=== PATIENT | male | born 1955 | race Caucasian/White ===

== ENCOUNTER 2020-11-26 16:09 | Inpatient (IN) ==
[2020-11-26 16:20] VITALS: BMI 31.4
[2020-11-26 16:31] LABS: ABG BASE EXCESS 8.9 mmol/L (-2.0-2.0)
[2020-11-26] MEDS ORDERED: CATAPRES TAB 0.2 MG PO ONE (16:31)
[2020-11-26 16:33] LABS: ABG ALLEN TEST POS; ABG HCO3 31.2 mmol/L (22-26)
--- NOTE | 2020-11-26 16:33 | DR.SOBA ---
HPI Time Seen Time Seen by Provider: 11/26/20 16:18 Primary Care Physician Primary Care Physician: briana nation HPI Comment HPI Comment: PATIENT IS 65YR OLD MALE I8N ER WITH INCREASING SOB, CHEST PAIN AND COUGH AND CONGESTION TIMES 4 DAYS. FEVER ON AND OFF. GETTING WORSE. Complaints Chief Complaint Doctors Comments: COUGH, CHEST CONGESTION AND INCREASIONG SOB TIMES 4 DAYS. Chief Complaint:: chest congestion for last 3-4 days. feeling increased shortness of breath. Self Treatment fo Chief Complaint: taking antibiotic cefdinir 300mg since yesterday COVID-19 Coronavirus risk:travel/contact w/high risk person: Yes Has patient experienced Coronavirus symptoms: Yes Coronavirus symptoms experienced: Coughing and Shortness of Breath Reviewed Nurses Notes Reviewed: Yes Source History Provided: Patient Mode of Arrival Mode of Arrival: Wheelchair Timing Onset of Chief Complaint: 11/22/20 Context Onset:: At Rest PE Risk Factors:: None History of:: COPD Currently on:: Neither Prehospital Care:: None Modifying Factors Worsens:: Exertion and Lying Flat Improves:: Rest and Sitting Up Associated Signs and Symptoms Associated Signs and Symptoms: Cough, Nasal Congestion and Calf Pain If Chest Pain Quality: Sharp Location: Substernal If Cough Cough: Productive and Yellow PMH PMH Past Medical History: Yes Past Medical History: COPD, Coronary Artery Disease, Dyslipidemia and Hypertension Past Medical History Comment: atrial fib Past Surgical History: Yes Surgical History: Angioplasty/Stents and Ortho Surgery Family History History of Family Medical Conditions: Yes Family Medical History: Cancer, [place], Coronary Artery Disease and Hypertension Social History Alcohol Use: None Do you use any recreational Drugs:: No Lives With: Family Lives Where: Home Travel Risk Coronavirus risk:travel/contact w/high risk person: Yes Coronavirus symptoms experienced: Shortness of Breath Infectious screening In the last 2 months have you had wt loss of >10#?: NO Have you had fever, night sweats or hemotysis?: No Have you traveled outside the country in the last 6 months?: No Isolation: Droplet ROS Review of Systems Constitutional: See HPI, Fever, Weakness and Fatigue Eyes: No Symptoms Reported and See HPI ENTM: No Symptoms Reported, See HPI, Nose Discharge and Nose Congestion Respiratoy: No Symptoms Reported, See HPI, Productive Cough, Short of Breath and Wheezing Cardiovascular: No Symptoms Reported, See HPI and Chest Pain Gastrointestinal/Abdominal: No Symptoms Reported and See HPI; negative Abdominal Pain, Diarrhea and Vomiting Genitourinary: No Symptoms Reported and See HPI; negative Dysuria and Hematuria Neurological: See HPI, Headache, Weakness and Dizziness Musculoskeletal: See HPI, Back Pain and Muscle Pain Integumentary: See HPI and Dryness; negative Change in Color, Rash and Juandice Hematologic/Lymphatic: No Symptoms Reported, See HPI and Easy Bruising; negative Swollen Glands Endocrine: No Symptoms Reported and See HPI; negative Increased Thirst and Increased Urine Psychiatric: No Symptoms Reported and See HPI All Other Systems: Reviewed and Negative PE Vital Signs Vitals: Temperature 97.9 F Pulse Rate [Right Radial] 69 Pulse Rate 86 Respiratory Rate 18 Blood Pressure [Left Arm] 176/95 Blood Pressure 206/95 O2 Sat by Pulse Oximetry 96 General Limitations: No Limitations General Appearance: Alert and In No Apparent Distress Head Head Exam: Normal Inspection and Atraumatic Eyes Eye exam: Normal Appearance and PERRL; negative Scleral Icterus and Conjunctival Injection ENT ENT Exam: Normal Exam, Normal Oropharynx, Normal External Ear Exam and TM's Normal Bilaterally Neck Neck Exam: Normal Inspection and Trachea Midline; negative Tenderness and Lymphadenopathy Chest Chest Inspection: Normal Inspection and Symmetric Chest Wall Rise; negative Tenderness Respiratory Respiratory Exam: Normal Lung Sounds Bilat and Accessory Muscle Use; negative Respiratory Distress Respiratory Exam: Bilateral: Rhonchi and Lower: Rhonchi Cardiovascular Cardiovascular Exam: Regular Rate, Normal Rhythm and Normal Heart Sounds; negative Systolic Murmur and Diastolic Murmur Abdominal Exam Abdominal Exam: Normal Inspection, Normal Bowel Sounds and Soft; negative Tenderness Extremities Extremities Exam: Normal Inspection and Normal Capillary Refill; negative Tenderness and Calf Tenderness Back Back Exam: Normal Inspection; negative (R) CVA Tenderness and (L) CVA Tenderness Neurologic Neurological Exam: Alert, Oriented X3 and CN II-XII Intact; negative Motor Sensory Deficit Psychiatric Psychiatric Exam: Normal Affect and Normal Mood Skin Skin Exam: Warm, Dry, Intact and Normal Color MDM Differential Diagnosis Differential Diagnosis: Bronchitis, CHF, COPD, Hypertensive Emergency, Hyponatremia, Mycardial Infarction, Pneumonia, Pneumothorax and Respiratory Ins ufficiency COURSE Treatment Treatment: SEE ORDERS. Education/Counseling Education/Counseling: Patient Educated On: Diagnosis ROR Labs Reviewed Laboratory Results Reviewed?: Yes Result Diagrams: 12/03/20 04:05 12/03/20 04:05 Laboratory: 11/26/20 17:03 Blood Blood Culture - Final 11/26/20 16:55 Blood Blood Culture - Final WBC 7.2 X10^3/uL (3.6-10.0) 11/26/20 16:55 RBC 3.71 X10^6/uL (4.7-6.0) L 11/26/20 16:55 Hgb 11.2 g/dL (13.5-18.0) L 11/26/20 16:55 Hct 33.7 % (42.0-54.0) L 11/26/20 16:55 MCV 90.9 fL (80.0-100.0) 11/26/20 16:55 MCH 30.2 pg (27.0-34.0) 11/26/20 16:55 MCHC 33.2 g/dL (33.0-35.0) 11/26/20 16:55 RDW 15.8 % (11.6-16.5) 11/26/20 16:55 Plt Count 229 X10^3/uL (150.0-450.0) 11/26/20 16:55 MPV 8.2 fL (7.4-11.0) 11/26/20 16:55 Neut % (Auto) 86.9 % (42.0-75.0) H 11/26/20 16:55 Lymph % (Auto) 8.0 % (21.0-51.0) L 11/26/20 16:55 [place] % (Auto) 4.5 % (0.0-13.0) 11/26/20 16:55 Eos % (Auto) 0.2 % (0.9-2.9) L 11/26/20 16:55 Baso % (Auto) 0.4 % (0.2-1.0) 11/26/20 16:55 Neut # (Auto) 6.3 x10^3/uL (2.2-4.8) H 11/26/20 16:55 Lymph # (Auto) 0.6 X10^3/uL (1.3-2.9) L 11/26/20 16:55 [place] # (Auto) 0.3 x10^3/uL (0.3-0.8) 11/26/20 16:55 Eos # (Auto) 0.0 x10^3/uL (0.0-0.2) 11/26/20 16:55 Baso # (Auto) 0.0 X10^3/uL (0.0-0.1) 11/26/20 16:55 Absolute Nucleated RBC 0.2 /100WBC 11/26/20 16:55 D-Dimer 0.34 ug/ml (0.0-0.57) 11/26/20 16:55 Sample Site Right radial 11/26/20 16:24 ABG pH 7.570 (7.35-7.45) H* 11/26/20 16:24 ABG pCO2 34.0 mmHg (35.0-45.0) L 11/26/20 16:24 ABG pO2 61.0 mmHg (80.0-100.0) L 11/26/20 16:24 ABG HCO3 31.2 mmol/L (22-26) H* 11/26/20 16:24 ABG O2 Saturation 94.0 % (90-100) 11/26/20 16:24 ABG Base Excess 8.9 mmol/L (-2.0-2.0) H 11/26/20 16:24 Laron Test Pos 11/26/20 16:24 A-a Gradient 46.0 mmHg 11/26/20 16:24 FiO2 21.0 11/26/20 16:24 Blood Gas Comments Ev well eb 11/26/20 16:24 Sodium 140 mmol/L (136-145) 11/26/20 16:55 Corrected Sodium 141 mmol/L (136-145) 11/26/20 16:55 Potassium 3.3 mmol/L (3.5-5.1) L 11/26/20 16:55 Chloride 100 mmol/L (98-107) 11/26/20 16:55 Carbon Dioxide 31.7 mmol/L (21-32) 11/26/20 16:55 BUN 16 mg/dL (7-18) 11/26/20 16:55 Creatinine 1.34 mg/dL (0.70-1.30) H 11/26/20 16:55 Est GFR (MDRD) Af Amer > 60 (>60) 11/26/20 16:55 Est GFR (MDRD) Non-Af 57 (>60) L 11/26/20 16:55 Glucose 122 mg/dL (65-99) H 11/26/20 16:55 Lactic Acid 1.7 mmol/L (0.4-2.0) 11/26/20 16:55 Calcium 8.7 mg/dL (8.5-10.1) 11/26/20 16:55 Corrected Calcium 9.4 mg/dL (8.5-10.1) 11/26/20 16:55 Total Bilirubin 0.80 mg/dL (0.2-1.0) 11/26/20 16:55 AST 29 Units/L (15-37) 11/26/20 16:55 ALT 19 Units/L (12-78) 11/26/20 16:55 Alkaline Phosphatase 62 Units/L (46-116) 11/26/20 16:55 Creatine Kinase 73 Units/L (39-308) 11/26/20 16:55 CK-MB (CK-2) 1.3 ng/mL (0-4.0) 11/26/20 16:55 CK/CKMB % Calc 1.8 % (<4) 11/26/20 16:55 Troponin I 0.07 ng/mL (0-1.5) 11/26/20 16:55 Total Protein 7.0 g/dL (6.4-8.2) 11/26/20 16:55 Albumin 3.1 g/dL (3.4-5.0) L 11/26/20 16:55 Globulin 3.9 g/dL (2.5-4.5) 11/26/20 16:55 Albumin/Globulin Ratio 0.8 Ratio (1.1-2.1) L 11/26/20 16:55 SARS CoV-2 RNA Rapid COLIN Positive (NEGATIVE) A 11/26/20 17:38 XRAY XRAY Interpreted by: Radiologist (REPORT NOTED AND DISCUSSED WITH PATIENT.) and Self EKG Rate: 94 [place]: Normal Rhythm: Afib and PVCs ST: Ischemia, Infarct and Nonsp Opioid Opioid Risk Tool Age ([place] if 16-45): No History of Preadolescent Sexual Abuse: No Total: 0 Total Score Risk Category: Low Risk Copyright: [facility] predicting aberrant behaviors Diagnosis Discharge Problem: Hypoxia, COVID-19 virus infection Pneumonia Qualifiers: Pneumonia type: due to unspecified organism Laterality: bilateral Lung location: lower lobe of lung Qualified Code(s): J18.9 - Pneumonia, unspecified organism Instructions Instructions: Incentive Spirometer Home Oxygen Use, Adult Hand Washing, Gxsf-wf-Prfd Droplet Precautions, Ajdh-lx-Uymd Contact Precautions, Fsmz-bj-Umza Hypertension, Gycm-at-Zjwa Acute Respiratory Failure, Adult Forms: EUA Consent Precautions for COVID19 Social Distancing
--- NOTE | 2020-11-26 16:54 | RAD ---
HISTORY:Chest congestion, shortness of breathStudy: Single view chestComparison:NoneFindings:Single view submitted. There are multifocal bilateral lung infiltrates present throughout the upper and lower lobes compatible with pneumonia.There is rhbc-yb-bqndenus cardiomegaly.The soft tissues are intact .IMPRESSION:1. Multifocal bilateral lung infiltrates compatible with pneumonia.2. Oiov-ae-mhbcbjuu cardiomegaly.Electronically signed by: FENG ENRIQUE (Nov 26, 2020 16:53:00)
[2020-11-26 17:15] LABS: BASOPHILS % (AUTO) 0.4 % (0.2-1.0); EOSINOPHILS % (AUTO) 0.2 % (0.9-2.9); HEMATOCRIT 33.7 % (42.0-54.0); HEMOGLOBIN 11.2 g/dL (13.5-18.0); LYMPHOCYTES # (AUTO) 0.6 X10^3/uL (1.3-2.9); MEAN CORPUSCULAR HEMOGLOBIN 30.2 pg (27.0-34.0); MEAN CORPUSCULAR HGB CONC 33.2 g/dL (33.0-35.0); MEAN CORPUSCULAR VOLUME 90.9 fL (80.0-100.0); MEAN PLATELET VOLUME 8.2 fL (7.4-11.0); MONOCYTES # (AUTO) 0.3 x10^3/uL (0.3-0.8); MONOCYTES % (AUTO) 4.5 % (0.0-13.0); NEUTROPHILS # (AUTO) 6.3 x10^3/uL (2.2-4.8); NEUTROPHILS % (AUTO) 86.9 % (42.0-75.0); PLATELET COUNT 229 X10^3/uL (150.0-450.0); RED BLOOD COUNT 3.71 X10^6/uL (4.7-6.0); RED CELL DISTRIBUTION WIDTH 15.8 % (11.6-16.5); WHITE BLOOD COUNT 7.2 X10^3/uL (3.6-10.0)
[2020-11-26 17:32] LABS: BLOOD UREA NITROGEN 16 mg/dL (7-18); CALCIUM 8.7 mg/dL (8.5-10.1); CARBON DIOXIDE 31.7 mmol/L (21-32); CHLORIDE 100 mmol/L (98-107); COR NA(FOR HYPERGLY) 141 mmol/L (136-145); CREATININE 1.34 mg/dL (0.70-1.30); SODIUM 140 mmol/L (136-145); TROPONIN I 0.07 ng/mL (0-1.5); eGFR NON BLACK RACES 57 (>60)
[2020-11-26 17:36] LABS: ALANINE AMINOTRANSFERASE 19 Units/L (12-78); ALBUMIN 3.1 g/dL (3.4-5.0); ALKALINE PHOSPHATASE 62 Units/L (46-116); ASPARTATE AMINO TRANSFERASE 29 Units/L (15-37); CKMB % 1.8 % (<4); COR CA(FOR HYPOALB) 9.4 mg/dL (8.5-10.1); CREATINE KINASE 73 Units/L (39-308); CREATINE KINASE MB 1.3 ng/mL (0-4.0)
[2020-11-26] MEDS ORDERED: CATAPRES TAB 0.2 MG ONE (17:37)
[2020-11-26] MEDS ORDERED: ZOFRAN TAB 4 MG ONE (17:39)
[2020-11-26] MEDS ORDERED: ZOFRAN TAB 4 MG PO ONE (17:41)
[2020-11-26 18:32] LABS: LACTIC ACID 1.7 mmol/L (0.4-2.0)
[2020-11-26] MEDS ORDERED: ZOFRAN INJ 4 MG VIAL IVP ONE (19:46)
[2020-11-26] MEDS ORDERED: TORADOL 30 MG VIAL IVP ONE (19:46)
[2020-11-26] MEDS ORDERED: TORADOL 30 MG VIAL ONE (19:50)
[2020-11-26] MEDS ORDERED: ZOFRAN INJ 4 MG VIAL ONE (19:50)
[2020-11-26] MEDS ORDERED: ROCEPHIN 1 GRAM IV PREMIX 1 G/50 ML IV.SOLN. IV ONE ×2 (21:09→21:11)
[2020-11-26] MEDS ORDERED: NS 250 ML IV 250 ML IV ONE ×2 (21:11→22:55)
[2020-11-26] MEDS ORDERED: ASPIRIN EC 81 MG PO ONE (22:00)
[2020-11-26] MEDS ORDERED: PROVENTIL NEB TX 0.083% 2.5MG/ 3ML ONE (22:29)
[2020-11-26] MEDS: PROVENTIL NEB TX 0.083% 2.5MG/ 3ML NEB SCH (22:30)
[2020-11-26] MEDS ORDERED: TUSSIONEX PENNKINETIC SUSP PO PRN (22:36)
[2020-11-26] MEDS ORDERED: PATIENT'S HOME MEDICATION (Aspirin 81 mg Tablet) PO SCH (22:36)
[2020-11-26] MEDS ORDERED: REMDESIVIR IV ONE (22:55)
[2020-11-26] MEDS: REMDESIVIR 200 MG in NS 250 ML IV 250 ML IV SCH (23:08)
[2020-11-26] MEDS ORDERED: ZOSYN VIAL 3.375 GRAMS IV ONE (23:11)
[2020-11-26] MEDS ORDERED: NS 100 ML IV 100 ML IV ONE (23:12)
[2020-11-27] MEDS: ZOSYN VIAL 3.375 GRAMS 3.375 G in NS 100 ML IV + SPIKE MINIBAG* 100 ML IV SCH ×4 (00:41→22:00)
[2020-11-27] MEDS: ZOFRAN INJ 4 MG VIAL IVP PRN ×3 (01:57→18:38)
[2020-11-27] MEDS ORDERED: ZOFRAN INJ 4 MG VIAL ONE ×2 (01:57→10:21)
[2020-11-27] MEDS ORDERED: ASCORBIC ACID INJ MULTI-DOSE VIAL IV ONE ×2 (02:51→09:09)
[2020-11-27] MEDS ORDERED: NS 100 ML IV 100 ML IV ONE ×4 (02:51→09:08)
[2020-11-27] MEDS: ASCORBIC ACID INJ MULTI-DOSE VIAL 1,500 MG in NS 100 ML IV 100 ML IV SCH ×4 (03:43→21:50)
[2020-11-27] MEDS ORDERED: TYLENOL 325 MG TAB PO ONE ×3 (03:49→10:46)
[2020-11-27] MEDS: TYLENOL 325 MG TAB PO PRN ×3 (03:52→14:21)
[2020-11-27] MEDS ORDERED: ZOSYN VIAL 3.375 GRAMS IV ONE ×2 (04:51→13:22)
[2020-11-27 06:12] LABS: BASOPHILS % (AUTO) 0.7 % (0.2-1.0); EOSINOPHILS % (AUTO) 0.1 % (0.9-2.9); HEMATOCRIT 31.5 % (42.0-54.0); HEMOGLOBIN 10.3 g/dL (13.5-18.0); LYMPHOCYTES # (AUTO) 0.7 X10^3/uL (1.3-2.9); MEAN CORPUSCULAR HEMOGLOBIN 29.8 pg (27.0-34.0); MEAN CORPUSCULAR HGB CONC 32.9 g/dL (33.0-35.0); MEAN CORPUSCULAR VOLUME 90.6 fL (80.0-100.0); MEAN PLATELET VOLUME 8.6 fL (7.4-11.0); MONOCYTES # (AUTO) 0.3 x10^3/uL (0.3-0.8); MONOCYTES % (AUTO) 5.6 % (0.0-13.0); NEUTROPHILS # (AUTO) 4.8 x10^3/uL (2.2-4.8); NEUTROPHILS % (AUTO) 81.6 % (42.0-75.0); PLATELET COUNT 198 X10^3/uL (150.0-450.0); RED BLOOD COUNT 3.47 X10^6/uL (4.7-6.0); RED CELL DISTRIBUTION WIDTH 15.6 % (11.6-16.5); WHITE BLOOD COUNT 5.9 X10^3/uL (3.6-10.0)
[2020-11-27 06:17] LABS: ALANINE AMINOTRANSFERASE 15 Units/L (12-78); ALBUMIN 2.6 g/dL (3.4-5.0); ALKALINE PHOSPHATASE 52 Units/L (46-116); ASPARTATE AMINO TRANSFERASE 30 Units/L (15-37); BLOOD UREA NITROGEN 20 mg/dL (7-18); CARBON DIOXIDE 28.4 mmol/L (21-32); CHLORIDE 101 mmol/L (98-107); COR CA(FOR HYPOALB) 9.1 mg/dL (8.5-10.1); CREATININE 1.26 mg/dL (0.70-1.30); SODIUM 139 mmol/L (136-145); TOTAL PROTEIN 6.1 g/dL (6.4-8.2); eGFR NON BLACK RACES > 60 (>60)
[2020-11-27] MEDS ORDERED: PROVENTIL NEB TX 0.083% 2.5MG/ 3ML ONE (06:24)
[2020-11-27 06:51] LABS: ABG BASE EXCESS 8.7 mmol/L (-2.0-2.0)
[2020-11-27 06:52] LABS: ABG ALLEN TEST POS; ABG HCO3 31.5 mmol/L (22-26)
[2020-11-27] MEDS: PROVENTIL NEB TX 0.083% 2.5MG/ 3ML NEB SCH ×3 (06:52→18:28)
[2020-11-27] MEDS ORDERED: VITAMIN A PO SCH (09:00)
[2020-11-27] MEDS ORDERED: VITAMIN D (1.25MG) PO SCH (09:00)
[2020-11-27] MEDS ORDERED: PLAVIX ONE (09:07)
[2020-11-27] MEDS ORDERED: LASIX ONE (09:07)
[2020-11-27] MEDS ORDERED: PEPCID TAB 20 MG ONE (09:07)
[2020-11-27] MEDS ORDERED: PROTONIX TAB 40 MG PO ONE (09:07)
[2020-11-27] MEDS ORDERED: ZINC SULFATE ONE (09:08)
[2020-11-27] MEDS ORDERED: ROBITUSSIN DM ONE ×2 (09:08→13:23)
[2020-11-27] MEDS: BENICAR TAB 40 MG PO SCH (09:15)
[2020-11-27] MEDS: LASIX PO SCH (09:16)
[2020-11-27] MEDS: LIPITOR TAB 40 MG PO SCH (09:18)
[2020-11-27] MEDS: PROTONIX TAB 40 MG PO SCH ×2 (09:19→21:50)
[2020-11-27] MEDS: ROBITUSSIN DM PO SCH ×4 (09:20→21:50)
[2020-11-27] MEDS: ZINC SULFATE PO SCH ×2 (09:20→21:50)
[2020-11-27] MEDS: PEPCID TAB 20 MG PO SCH ×2 (09:21→21:50)
[2020-11-27] MEDS: VSL#3 PO SCH (09:25)
[2020-11-27] MEDS: PLAVIX PO SCH (09:30)
[2020-11-27] MEDS: ELIQUIS PO SCH ×2 (10:05→21:50)
[2020-11-27] MEDS ORDERED: NS 100 ML IV + SPIKE MINIBAG* 100 ML IV ONE (13:23)
--- NOTE | 2020-11-27 13:42 | DR.H&P ---
H&P History & Physical for Day of: H&P Date: 11/27/20 Chief Complaint Chief Complaint: Fever, Shortness of breath Chills Allergies Allergies Allergy/AdvReac Type Severity Reaction Status Date / Time acetaminophen Allergy Verified 11/26/20 16:15 [From Lorcet (hydrocodone)] hydrocodone Allergy Verified 11/26/20 16:15 [From Lorcet (hydrocodone)] History of Present Illness History of Present Illness: Pt is a 65 year old male past medical history of Hypertension, COPD, CAD, presenting with shortness of breath, fever, chills, and weakness for the last 3-4 days. He reports he was initially treated with antibiotic cefdinir but did not improve. In the ED, he was found to be hypoxic and required supplemental oxygen. Labs/imaging: Wbc 5.9, Hgb 10.3, Plt 198, Na 139, K 3.4, Cr 1.34>1.26, Glucose 85, CRP 179, Troponin negative x 2, COVID positive on 11/26, INR: 1.34, D-dimer: 0.34, AB.57/34/61/31 on 2L 94%, repeat was done, 7.55/36/55/31 on 3L 91%. CXR:1. Multifocal bilateral lung infiltrates compatible with pneumonia. 2.Nfza-bl-mknvhjic cardiomegaly. HE was started on Remdesivir, Decadron, Bronchodilators, Convalescent plasma ordered, Antibiotics: Zosyn , immune supporting supplements, supplemental O2, I/S, Respiratory therapy consult, Pneumonia protocol. Patient was initially on 2L NC but then declined rapidly and was placed on HHFNC. Continue treatment, restart home meds. Follow up labs and imaging in the AM. Time spent on clinical assessment, reviewing labs and imaging, decision making, and documentation greater than 45 minutes. Past Medical History Past Medical History: COPD, Coronary Artery Disease, Dyslipidemia and Hypertension Past Surgical History Surgical History: Angioplasty/Stents and Ortho Surgery Family History Family Medical History: Diabetes Mellitus, Cancer and Hypertension Social History Does patient currently use any type of tobacco product: No Have you used tobacco products in the last 12 months: No Type of Tobacco Use: None Does any household member use tobacco: No Alcohol Use: None Drug Use: None Medications Home Medications: acetaminophen [From Lorcet (hydrocodone)] Allergy (Verified 11/26/20 16:15) hydrocodone [From Lorcet (hydrocodone)] Allergy (Verified 11/26/20 16:15) CONTINUE taking the following medications apixaban [Eliquis] 5 mg PO BID 11/26/20 [History] ascorbic acid (vitamin C) [Vitamin C] 500 mg PO DAILY 11/26/20 [History] aspirin 81 mg PO ONCE 11/26/20 [History] atorvastatin 80 mg PO DAILY 11/26/20 [History] cefdinir 300 mg PO BID 11/26/20 [History] furosemide 40 mg PO DAILY 11/26/20 [History] olmesartan 20 mg PO DAILY 11/26/20 [History] pantoprazole 40 mg PO BID 11/26/20 [History] prednisone 10 mg PO DAILY 11/26/20 [History] Labs Result Diagrams: 11/27/20 04:10 11/27/20 04:10 Labs: Laboratory WBC 5.9 X10^3/uL (3.6-10.0) 11/27/20 04:10 RBC 3.47 X10^6/uL (4.7-6.0) L 11/27/20 04:10 Hgb 10.3 g/dL (13.5-18.0) L 11/27/20 04:10 Hct 31.5 % (42.0-54.0) L 11/27/20 04:10 MCV 90.6 fL (80.0-100.0) 11/27/20 04:10 MCH 29.8 pg (27.0-34.0) 11/27/20 04:10 MCHC 32.9 g/dL (33.0-35.0) L 11/27/20 04:10 RDW 15.6 % (11.6-16.5) 11/27/20 04:10 Plt Count 198 X10^3/uL (150.0-450.0) 11/27/20 04:10 MPV 8.6 fL (7.4-11.0) 11/27/20 04:10 Neut % (Auto) 81.6 % (42.0-75.0) H 11/27/20 04:10 Lymph % (Auto) 12.0 % (21.0-51.0) L 11/27/20 04:10 [place] % (Auto) 5.6 % (0.0-13.0) 11/27/20 04:10 Eos % (Auto) 0.1 % (0.9-2.9) L 11/27/20 04:10 Baso % (Auto) 0.7 % (0.2-1.0) 11/27/20 04:10 Neut # (Auto) 4.8 x10^3/uL (2.2-4.8) 11/27/20 04:10 Lymph # (Auto) 0.7 X10^3/uL (1.3-2.9) L 11/27/20 04:10 [place] # (Auto) 0.3 x10^3/uL (0.3-0.8) 11/27/20 04:10 Eos # (Auto) 0.0 x10^3/uL (0.0-0.2) 11/27/20 04:10 Baso # (Auto) 0.0 X10^3/uL (0.0-0.1) 11/27/20 04:10 Absolute Nucleated RBC 0.0 /100WBC 11/27/20 04:10 PT 16.2 SECONDS (11.8-14.3) 11/27/20 04:10 INR Target Range - 11/27/20 04:10 INR 1.34 (0.8-1.3) H 11/27/20 04:10 APTT 56.7 SECONDS (22.9-36.5) H 11/27/20 04:10 PTT Comment - 11/27/20 04:10 D-Dimer 0.34 ug/ml (0.0-0.57) 11/26/20 16:55 Sample Site Lrad 11/27/20 06:49 ABG pH 7.550 (7.35-7.45) H 11/27/20 06:49 ABG pCO2 36.0 mmHg (35.0-45.0) 11/27/20 06:49 ABG pO2 55.0 mmHg (80.0-100.0) L 11/27/20 06:49 ABG HCO3 31.5 mmol/L (22-26) H* 11/27/20 06:49 ABG O2 Saturation 92.0 % (90-100) 11/27/20 06:49 ABG Base Excess 8.7 mmol/L (-2.0-2.0) H 11/27/20 06:49 Laron Test Pos 11/27/20 06:49 A-a Gradient 128.0 mmHg 11/27/20 06:49 FiO2 32.0 11/27/20 06:49 Blood Gas Comments Ev abg well-mtf 11/27/20 06:49 Sodium 139 mmol/L (136-145) 11/27/20 04:10 Corrected Sodium TNP 11/27/20 04:10 Potassium 3.4 mmol/L (3.5-5.1) L 11/27/20 04:10 Chloride 101 mmol/L (98-107) 11/27/20 04:10 Carbon Dioxide 28.4 mmol/L (21-32) 11/27/20 04:10 BUN 20 mg/dL (7-18) H 11/27/20 04:10 Creatinine 1.26 mg/dL (0.70-1.30) 11/27/20 04:10 Est GFR (MDRD) Af Amer > 60 (>60) 11/27/20 04:10 Est GFR (MDRD) Non-Af > 60 (>60) 11/27/20 04:10 Glucose 85 mg/dL (65-99) 11/27/20 04:10 Lactic Acid 1.7 mmol/L (0.4-2.0) 11/26/20 16:55 Calcium 8.0 mg/dL (8.5-10.1) L 11/27/20 04:10 Corrected Calcium 9.1 mg/dL (8.5-10.1) 11/27/20 04:10 Total Bilirubin 0.70 mg/dL (0.2-1.0) 11/27/20 04:10 AST 30 Units/L (15-37) 11/27/20 04:10 ALT 15 Units/L (12-78) 11/27/20 04:10 Alkaline Phosphatase 52 Units/L (46-116) 11/27/20 04:10 Creatine Kinase 73 Units/L (39-308) 11/26/20 16:55 CK-MB (CK-2) 1.3 ng/mL (0-4.0) 11/26/20 16:55 CK/CKMB % Calc 1.8 % (<4) 11/26/20 16:55 Troponin I 0.13 ng/mL (0-1.5) 11/26/20 22:46 C-Reactive Protein 179.60 mg/L (0-3.0) H 11/27/20 04:10 Total Protein 6.1 g/dL (6.4-8.2) L 11/27/20 04:10 Albumin 2.6 g/dL (3.4-5.0) L 11/27/20 04:10 Globulin 3.5 g/dL (2.5-4.5) 11/27/20 04:10 Albumin/Globulin Ratio 0.7 Ratio (1.1-2.1) L 11/27/20 04:10 SARS CoV-2 RNA Rapid COLIN Positive (NEGATIVE) A 11/26/20 17:38 Review of Systems Constitutional: Fever, Chills and Weakness Eyes: No Symptoms Reported ENT: No Symptoms Reported Respiratory: Cough, Shortness of Breath, SOB with Excertion and Wheezing Cardiovascular: No Symptoms Reported Gastrointestinal: No Symptoms Reported Genitourinary: No Symptoms Reported Musculoskeletal: No Symptoms Reported Skin: No Symptoms Reported Neurological: No Symptoms Reported Physical Exam Vital Signs: Temperature 100.4 F Pulse Rate [Right Radial] 58 Pulse Rate 74 Respiratory Rate 24 Blood Pressure [Left Arm] 149/68 Blood Pressure 206/95 O2 Sat by Pulse Oximetry 90 Oriented: Normal Eyes: Normal Ear: Normal Nose: Normal Throat: Normal Respiratory: Diminished Throughout, Rales Throughout and Wheezes Throughout Cardiovascular: Normal : Normal Auscultation: Bowel Sounds: Normal Palpation: Normal Tenderness: Normal Skin: Normal Musculoskeletal: Normal Psychiatric: Normal Mood Description: Calm and Appropriate Affect: Normal Speech Pattern: Clear and Appropriate Assessment/Plan (1) Pneumonia due to COVID-19 virus: Status: Acute (2) Acute respiratory failure with hypoxia: Status: Acute (3) COPD (chronic obstructive pulmonary disease): Qualifiers: COPD type: unspecified COPD Qualified Code(s): J44.9 - Chronic obstructive pulmonary disease, unspecified Status: Acute Review H&P Reviewed: Yes Patient was examined?: Yes
[2020-11-27] MEDS ORDERED: XANAX PO PRN (14:41)
[2020-11-27] MEDS: DECADRON TAB PO SCH (21:50)
[2020-11-27] MEDS ORDERED: DECADRON TAB ONE (21:56)
[2020-11-28] MEDS: ASCORBIC ACID INJ MULTI-DOSE VIAL 1,500 MG in NS 100 ML IV 100 ML IV SCH (03:00)
[2020-11-28] MEDS: REMDESIVIR 200 MG in NS 250 ML IV 250 ML IV SCH (04:17)
[2020-11-28] MEDS: PROVENTIL NEB TX 0.083% 2.5MG/ 3ML NEB SCH ×4 (06:24→17:47)
[2020-11-28 06:29] LABS: BASOPHILS % (AUTO) 0.2 % (0.2-1.0); HEMATOCRIT 30.3 % (42.0-54.0); HEMOGLOBIN 10.3 g/dL (13.5-18.0); LYMPHOCYTES # (AUTO) 0.4 X10^3/uL (1.3-2.9); LYMPHOCYTES % (AUTO) 7.3 % (21.0-51.0); MEAN CORPUSCULAR HEMOGLOBIN 30.7 pg (27.0-34.0); MEAN CORPUSCULAR HGB CONC 34.1 g/dL (33.0-35.0); MEAN CORPUSCULAR VOLUME 89.9 fL (80.0-100.0); MONOCYTES # (AUTO) 0.1 x10^3/uL (0.3-0.8); MONOCYTES % (AUTO) 2.6 % (0.0-13.0); NEUTROPHILS # (AUTO) 4.5 x10^3/uL (2.2-4.8); NEUTROPHILS % (AUTO) 89.9 % (42.0-75.0); PLATELET COUNT 199 X10^3/uL (150.0-450.0); RED BLOOD COUNT 3.37 X10^6/uL (4.7-6.0); RED CELL DISTRIBUTION WIDTH 15.5 % (11.6-16.5)
[2020-11-28] MEDS: ZOSYN VIAL 3.375 GRAMS 3.375 G in NS 100 ML IV + SPIKE MINIBAG* 100 ML IV SCH (06:30)
[2020-11-28 06:45] LABS: ALANINE AMINOTRANSFERASE 19 Units/L (12-78); ALBUMIN 2.5 g/dL (3.4-5.0); ALKALINE PHOSPHATASE 72 Units/L (46-116); ASPARTATE AMINO TRANSFERASE 39 Units/L (15-37); BLOOD UREA NITROGEN 25 mg/dL (7-18); CALCIUM 8.2 mg/dL (8.5-10.1); CARBON DIOXIDE 28.8 mmol/L (21-32); CHLORIDE 102 mmol/L (98-107); COR CA(FOR HYPOALB) 9.4 mg/dL (8.5-10.1); COR NA(FOR HYPERGLY) 140 mmol/L (136-145); CREATININE 1.35 mg/dL (0.70-1.30); SODIUM 139 mmol/L (136-145); TOTAL PROTEIN 6.2 g/dL (6.4-8.2); eGFR NON BLACK RACES 56 (>60)
--- NOTE | 2020-11-28 06:55 | RAD ---
HISTORYHypoxiaSTUDYChest AP [id number]/29/2020FINDINGSThe heart remains enlarged. No congestive heart failure is noted. Diffuse bilateral interstitial and some ground-glass infiltrates are again identified unchanged from the prior examination. Mild hyperinflation remains. No pleural effusions are identified. Bony thorax is unremarkable.IMPRESSIONNo significant change when compared to the prior examinationElectronically signed by: EDMUND MONCADA (Nov 28, 2020 06:53:20)
[2020-11-28] MEDS: ROBITUSSIN DM PO SCH ×5 (09:31→23:10)
[2020-11-28] MEDS: ELIQUIS PO SCH ×2 (09:31→21:00)
[2020-11-28] MEDS: LASIX PO SCH (09:33)
[2020-11-28] MEDS: PLAVIX PO SCH (09:35)
[2020-11-28] MEDS: ZINC SULFATE PO SCH ×2 (09:36→21:00)
[2020-11-28] MEDS: PROTONIX TAB 40 MG PO SCH ×2 (09:36→21:00)
[2020-11-28] MEDS: VSL#3 PO SCH (09:37)
[2020-11-28] MEDS: VITAMIN D3 125 mcg (5,000 UNITS) PO SCH (09:37)
[2020-11-28] MEDS: BENICAR TAB 40 MG PO SCH (09:38)
[2020-11-28] MEDS: REMDESIVIR 100 MG in NS 250 ML IV 250 ML IV SCH (09:39)
[2020-11-28] MEDS ORDERED: IVERMECTIN PO SCH (10:00)
[2020-11-28] MEDS: VITAMIN A PO SCH (10:06)
[2020-11-28] MEDS: LIPITOR TAB 40 MG PO SCH (10:38)
[2020-11-28] MEDS: PEPCID TAB 20 MG PO SCH ×2 (10:38→21:12)
[2020-11-28] MEDS: NS 1000 ML 1,000 ML IV SCH (10:39)
[2020-11-28] MEDS: ZOFRAN INJ 4 MG VIAL IVP PRN ×2 (12:27→23:00)
[2020-11-28] MEDS: ASCORBIC ACID INJ MULTI-DOSE VIAL 1,500 MG in NS 50 ML IV 50 ML IV SCH ×2 (15:30→22:00)
[2020-11-28] MEDS: ZOSYN VIAL 3.375 GRAMS 3.375 G in NS 50 ML IV + SPIKE MINIBAG* 50 ML IV SCH ×2 (16:19→21:00)
[2020-11-28] MEDS: VIBRAMYCIN PO SCH (21:00)
[2020-11-28] MEDS: TYLENOL 325 MG TAB PO PRN (21:00)
[2020-11-29] MEDS: PROVENTIL NEB TX 0.083% 2.5MG/ 3ML NEB SCH ×4 (01:05→17:25)
[2020-11-29] MEDS: DECADRON TAB PO SCH ×2 (02:06→10:50)
[2020-11-29] MEDS: ASCORBIC ACID INJ MULTI-DOSE VIAL 1,500 MG in NS 50 ML IV 50 ML IV SCH ×4 (02:15→20:45)
[2020-11-29 06:19] LABS: BASOPHILS % (AUTO) 0.1 % (0.2-1.0); HEMATOCRIT 30.8 % (42.0-54.0); HEMOGLOBIN 10.4 g/dL (13.5-18.0); LYMPHOCYTES # (AUTO) 0.7 X10^3/uL (1.3-2.9); LYMPHOCYTES % (AUTO) 10.6 % (21.0-51.0); MEAN CORPUSCULAR HEMOGLOBIN 30.2 pg (27.0-34.0); MEAN CORPUSCULAR HGB CONC 33.7 g/dL (33.0-35.0); MEAN CORPUSCULAR VOLUME 89.6 fL (80.0-100.0); MONOCYTES # (AUTO) 0.4 x10^3/uL (0.3-0.8); MONOCYTES % (AUTO) 5.2 % (0.0-13.0); NEUTROPHILS # (AUTO) 5.8 x10^3/uL (2.2-4.8); NEUTROPHILS % (AUTO) 84.1 % (42.0-75.0); PLATELET COUNT 243 X10^3/uL (150.0-450.0); RED BLOOD COUNT 3.44 X10^6/uL (4.7-6.0); RED CELL DISTRIBUTION WIDTH 15.3 % (11.6-16.5); WHITE BLOOD COUNT 6.9 X10^3/uL (3.6-10.0)
[2020-11-29 06:29] LABS: ALANINE AMINOTRANSFERASE 24 Units/L (12-78); ALBUMIN 2.8 g/dL (3.4-5.0); ALKALINE PHOSPHATASE 65 Units/L (46-116); ASPARTATE AMINO TRANSFERASE 44 Units/L (15-37); BLOOD UREA NITROGEN 31 mg/dL (7-18); CALCIUM 8.5 mg/dL (8.5-10.1); CARBON DIOXIDE 28.5 mmol/L (21-32); CHLORIDE 101 mmol/L (98-107); COR CA(FOR HYPOALB) 9.5 mg/dL (8.5-10.1); COR NA(FOR HYPERGLY) 143 mmol/L (136-145); CREATININE 1.42 mg/dL (0.70-1.30); SODIUM 141 mmol/L (136-145); TOTAL PROTEIN 6.8 g/dL (6.4-8.2); eGFR NON BLACK RACES 53 (>60)
[2020-11-29] MEDS: ZOSYN VIAL 3.375 GRAMS 3.375 G in NS 50 ML IV + SPIKE MINIBAG* 50 ML IV SCH ×3 (06:46→22:40)
[2020-11-29] MEDS: REMDESIVIR 100 MG in NS 250 ML IV 250 ML IV SCH (09:21)
[2020-11-29] MEDS: VSL#3 PO SCH (09:24)
[2020-11-29] MEDS: BENICAR TAB 40 MG PO SCH (09:24)
[2020-11-29] MEDS: PROTONIX TAB 40 MG PO SCH ×2 (09:25→20:45)
[2020-11-29] MEDS: ELIQUIS PO SCH ×2 (09:26→20:45)
[2020-11-29] MEDS: LIPITOR TAB 40 MG PO SCH (09:26)
[2020-11-29] MEDS: ZINC SULFATE PO SCH ×2 (09:27→20:45)
[2020-11-29] MEDS: VITAMIN D3 125 mcg (5,000 UNITS) PO SCH (09:28)
[2020-11-29] MEDS: PLAVIX PO SCH (09:28)
[2020-11-29] MEDS: VIBRAMYCIN PO SCH ×2 (09:29→20:45)
[2020-11-29] MEDS: PEPCID TAB 20 MG PO SCH ×2 (10:51→20:45)
[2020-11-29] MEDS: VITAMIN A PO SCH (10:52)
[2020-11-29] MEDS: NS 1000 ML 1,000 ML IV SCH (10:53)
[2020-11-29] MEDS: TYLENOL 325 MG TAB PO PRN ×2 (11:37→21:10)
[2020-11-29] MEDS: ZOFRAN INJ 4 MG VIAL IVP PRN (11:38)
[2020-11-29] MEDS: NORVASC TAB 5 MG PO SCH (11:55)
[2020-11-29] MEDS ORDERED: K-RIDER 10 MEQ/NS 100 ML 10 MEQ/100 ML BAG IV PRN (12:35)
[2020-11-29] MEDS ORDERED: KLOR-CON PO PRN (12:35)
[2020-11-29] MEDS ORDERED: MAGNESIUM SULFATE 1 GRAM/100 mL PREMIX 1 GM/100 ML BAG IV PRN (12:35)
[2020-11-29] MEDS ORDERED: POTASSIUM CHL 40 MEQ/NS 0.45% 500 ML IV PRN (12:35)
[2020-11-29] MEDS ORDERED: K-DUR TAB 20 MEQ PO PRN (12:35)
[2020-11-29] MEDS ORDERED: MICRO K EXTEN CAP 10 MEQ PO PRN (12:35)
[2020-11-29] MEDS ORDERED: POTASSIUM CHLORIDE LIQ 20 MEQ UDC PO PRN (12:35)
[2020-11-29] MEDS ORDERED: POTASSIUM CHL 60 MEQ/NS 0.45% 500 ML IV PRN (12:35)
[2020-11-29] MEDS: ROBITUSSIN DM PO SCH ×4 (12:38→23:50)
[2020-11-29] MEDS ORDERED: LEXAPRO ONE (15:35)
[2020-11-29] MEDS: LEXAPRO PO SCH (15:40)
[2020-11-30] MEDS: PROVENTIL NEB TX 0.083% 2.5MG/ 3ML NEB SCH ×4 (00:09→16:03)
[2020-11-30] MEDS: ASCORBIC ACID INJ MULTI-DOSE VIAL 1,500 MG in NS 50 ML IV 50 ML IV SCH ×4 (02:21→21:55)
[2020-11-30] MEDS: ZOSYN VIAL 3.375 GRAMS 3.375 G in NS 50 ML IV + SPIKE MINIBAG* 50 ML IV SCH ×3 (05:37→22:40)
--- NOTE | 2020-11-30 05:43 | RAD ---
HISTORYARDS, pneumoniaSTUDYAP [id number]/31/2020FINDINGSStable cardiac enlargement. There is no change in appearance of the bilateral diffuse pulmonary infiltrates. No new areas of consolidation, complicating pneumothorax or developing pleural fluid.IMPRESSIONNo change. Cardiomegaly and bilateral infiltrates consistent with pneumonia/edema.Electronically signed by: JUNIOR ROGERS (Nov 30, 2020 05:41:43)
[2020-11-30 07:10] LABS: BASOPHILS % (AUTO) 0.2 % (0.2-1.0); HEMATOCRIT 28.6 % (42.0-54.0); HEMOGLOBIN 9.7 g/dL (13.5-18.0); LYMPHOCYTES # (AUTO) 0.7 X10^3/uL (1.3-2.9); LYMPHOCYTES % (AUTO) 8.9 % (21.0-51.0); MEAN CORPUSCULAR HEMOGLOBIN 30.4 pg (27.0-34.0); MEAN CORPUSCULAR HGB CONC 33.8 g/dL (33.0-35.0); MEAN CORPUSCULAR VOLUME 89.9 fL (80.0-100.0); MEAN PLATELET VOLUME 8.1 fL (7.4-11.0); MONOCYTES # (AUTO) 0.4 x10^3/uL (0.3-0.8); MONOCYTES % (AUTO) 5.5 % (0.0-13.0); NEUTROPHILS # (AUTO) 6.4 x10^3/uL (2.2-4.8); NEUTROPHILS % (AUTO) 85.4 % (42.0-75.0); PLATELET COUNT 247 X10^3/uL (150.0-450.0); RED BLOOD COUNT 3.18 X10^6/uL (4.7-6.0); RED CELL DISTRIBUTION WIDTH 15.6 % (11.6-16.5); WHITE BLOOD COUNT 7.5 X10^3/uL (3.6-10.0)
[2020-11-30 07:13] LABS: ALANINE AMINOTRANSFERASE 25 Units/L (12-78); ALBUMIN 2.6 g/dL (3.4-5.0); ALKALINE PHOSPHATASE 73 Units/L (46-116); ASPARTATE AMINO TRANSFERASE 39 Units/L (15-37); BLOOD UREA NITROGEN 27 mg/dL (7-18); CALCIUM 8.1 mg/dL (8.5-10.1); CARBON DIOXIDE 26.5 mmol/L (21-32); CHLORIDE 105 mmol/L (98-107); COR CA(FOR HYPOALB) 9.2 mg/dL (8.5-10.1); COR NA(FOR HYPERGLY) 142 mmol/L (136-145); CREATININE 1.15 mg/dL (0.70-1.30); SODIUM 141 mmol/L (136-145); TOTAL PROTEIN 6.1 g/dL (6.4-8.2); eGFR NON BLACK RACES > 60 (>60)
[2020-11-30] MEDS ORDERED: LEXAPRO ONE (08:39)
[2020-11-30] MEDS: BENICAR TAB 40 MG PO SCH (08:55)
[2020-11-30] MEDS: ELIQUIS PO SCH ×2 (08:56→21:55)
[2020-11-30] MEDS: LEXAPRO PO SCH (08:57)
[2020-11-30] MEDS: PLAVIX PO SCH (08:58)
[2020-11-30] MEDS: NORVASC TAB 5 MG PO SCH (08:58)
[2020-11-30] MEDS: PROTONIX TAB 40 MG PO SCH ×2 (08:59→21:55)
[2020-11-30] MEDS: ZINC SULFATE PO SCH ×2 (08:59→21:55)
[2020-11-30] MEDS: VSL#3 PO SCH (09:00)
[2020-11-30] MEDS: VITAMIN A PO SCH (09:00)
[2020-11-30] MEDS: ZOFRAN INJ 4 MG VIAL IVP PRN ×2 (09:01→21:55)
[2020-11-30] MEDS: VITAMIN D3 125 mcg (5,000 UNITS) PO SCH (09:01)
[2020-11-30] MEDS: DECADRON TAB PO SCH (09:49)
[2020-11-30] MEDS: PEPCID TAB 20 MG PO SCH ×2 (09:50→21:55)
[2020-11-30] MEDS: REMDESIVIR 100 MG in NS 250 ML IV 250 ML IV SCH (09:51)
[2020-11-30] MEDS: VIBRAMYCIN PO SCH ×2 (09:51→21:55)
[2020-11-30] MEDS: TYLENOL 325 MG TAB PO PRN ×2 (09:52→21:55)
[2020-11-30] MEDS: ROBITUSSIN DM PO SCH ×2 (10:11→18:09)
[2020-11-30] MEDS: LIPITOR TAB 40 MG PO SCH (14:10)
[2020-11-30] MEDS: IVERMECTIN PO SCH (14:10)
[2020-11-30] MEDS: XANAX PO PRN ×2 (14:50→21:55)
[2020-11-30] MEDS: NS 1000 ML 1,000 ML IV SCH (14:50)
[2020-12-01] MEDS: ASCORBIC ACID INJ MULTI-DOSE VIAL 1,500 MG in NS 50 ML IV 50 ML IV SCH ×4 (03:15→20:30)
[2020-12-01] MEDS: ROBITUSSIN DM PO SCH ×4 (04:37→17:04)
[2020-12-01] MEDS: PROVENTIL NEB TX 0.083% 2.5MG/ 3ML NEB SCH ×2 (05:33)
[2020-12-01] MEDS: ZOSYN VIAL 3.375 GRAMS 3.375 G in NS 50 ML IV + SPIKE MINIBAG* 50 ML IV SCH ×3 (05:41→22:35)
[2020-12-01 06:05] LABS: BASOPHILS % (AUTO) 0.4 % (0.2-1.0); HEMATOCRIT 27.8 % (42.0-54.0); HEMOGLOBIN 9.3 g/dL (13.5-18.0); LYMPHOCYTES # (AUTO) 0.8 X10^3/uL (1.3-2.9); LYMPHOCYTES % (AUTO) 8.3 % (21.0-51.0); MEAN CORPUSCULAR HEMOGLOBIN 30.1 pg (27.0-34.0); MEAN CORPUSCULAR HGB CONC 33.3 g/dL (33.0-35.0); MEAN CORPUSCULAR VOLUME 90.3 fL (80.0-100.0); MONOCYTES # (AUTO) 0.7 x10^3/uL (0.3-0.8); MONOCYTES % (AUTO) 7.4 % (0.0-13.0); NEUTROPHILS # (AUTO) 8.4 x10^3/uL (2.2-4.8); NEUTROPHILS % (AUTO) 83.9 % (42.0-75.0); PLATELET COUNT 262 X10^3/uL (150.0-450.0); RED BLOOD COUNT 3.08 X10^6/uL (4.7-6.0); RED CELL DISTRIBUTION WIDTH 15.5 % (11.6-16.5)
[2020-12-01 06:06] LABS: ALANINE AMINOTRANSFERASE 25 Units/L (12-78); ALBUMIN 2.6 g/dL (3.4-5.0); ALKALINE PHOSPHATASE 101 Units/L (46-116); ASPARTATE AMINO TRANSFERASE 29 Units/L (15-37); BLOOD UREA NITROGEN 25 mg/dL (7-18); CALCIUM 8.3 mg/dL (8.5-10.1); CARBON DIOXIDE 28.6 mmol/L (21-32); CHLORIDE 104 mmol/L (98-107); COR CA(FOR HYPOALB) 9.4 mg/dL (8.5-10.1); COR NA(FOR HYPERGLY) 141 mmol/L (136-145); SODIUM 140 mmol/L (136-145); TOTAL PROTEIN 5.8 g/dL (6.4-8.2); eGFR NON BLACK RACES > 60 (>60)
[2020-12-01] MEDS ORDERED: LEXAPRO ONE (08:40)
[2020-12-01] MEDS: VITAMIN A PO SCH (08:51)
[2020-12-01] MEDS: BENICAR TAB 40 MG PO SCH (08:51)
[2020-12-01] MEDS: VSL#3 PO SCH (08:51)
[2020-12-01] MEDS: ZINC SULFATE PO SCH ×2 (08:52→20:32)
[2020-12-01] MEDS: VITAMIN D3 125 mcg (5,000 UNITS) PO SCH (08:52)
[2020-12-01] MEDS: NORVASC TAB 5 MG PO SCH (08:53)
[2020-12-01] MEDS: PROTONIX TAB 40 MG PO SCH ×2 (08:53→20:32)
[2020-12-01] MEDS: ELIQUIS PO SCH ×2 (08:54→20:32)
[2020-12-01] MEDS: PLAVIX PO SCH (08:54)
[2020-12-01] MEDS: DECADRON TAB PO SCH (08:54)
[2020-12-01] MEDS: LEXAPRO PO SCH (08:55)
[2020-12-01] MEDS: LIPITOR TAB 40 MG PO SCH (08:56)
[2020-12-01] MEDS: REMDESIVIR 100 MG in NS 250 ML IV 250 ML IV SCH (08:57)
[2020-12-01] MEDS: PEPCID TAB 20 MG PO SCH ×2 (09:56→21:00)
[2020-12-01] MEDS: VIBRAMYCIN PO SCH ×2 (09:56→20:32)
[2020-12-01] MEDS: NS 1000 ML 1,000 ML IV SCH (10:29)
[2020-12-01] MEDS: XOPENEX 1.25 MG/3 ML NEBULE NEB SCH ×2 (11:57→16:26)
[2020-12-01] MEDS: TYLENOL 325 MG TAB PO PRN ×2 (12:01→20:32)
[2020-12-01] MEDS: ZOFRAN INJ 4 MG VIAL IVP PRN ×2 (12:02→20:35)
[2020-12-01] MEDS: TOPROL XL PO SCH (13:05)
[2020-12-01] MEDS: XANAX PO PRN (20:35)
[2020-12-02] MEDS: XOPENEX 1.25 MG/3 ML NEBULE NEB SCH ×4 (00:01→19:14)
[2020-12-02] MEDS: ZOSYN VIAL 4.5 GRAMS 4.5 G in NS 50 ML IV + SPIKE MINIBAG* 50 ML IV SCH ×4 (00:02→21:51)
[2020-12-02] MEDS: ROBITUSSIN DM PO SCH ×5 (00:19→22:38)
[2020-12-02] MEDS: NS 1000 ML 1,000 ML IV SCH ×2 (02:50→10:28)
[2020-12-02] MEDS: ASCORBIC ACID INJ MULTI-DOSE VIAL 1,500 MG in NS 50 ML IV 50 ML IV SCH ×3 (02:50→21:49)
[2020-12-02 06:18] LABS: BASOPHILS % (AUTO) 0.3 % (0.2-1.0); HEMATOCRIT 31.5 % (42.0-54.0); HEMOGLOBIN 10.4 g/dL (13.5-18.0); LYMPHOCYTES # (AUTO) 1.1 X10^3/uL (1.3-2.9); LYMPHOCYTES % (AUTO) 6.6 % (21.0-51.0); MEAN CORPUSCULAR HEMOGLOBIN 29.9 pg (27.0-34.0); MEAN CORPUSCULAR VOLUME 90.5 fL (80.0-100.0); MONOCYTES # (AUTO) 0.9 x10^3/uL (0.3-0.8); MONOCYTES % (AUTO) 5.6 % (0.0-13.0); NEUTROPHILS % (AUTO) 87.5 % (42.0-75.0); PLATELET COUNT 316 X10^3/uL (150.0-450.0); RED BLOOD COUNT 3.48 X10^6/uL (4.7-6.0); RED CELL DISTRIBUTION WIDTH 15.9 % (11.6-16.5)
[2020-12-02 06:35] LABS: ALANINE AMINOTRANSFERASE 26 Units/L (12-78); ALBUMIN 2.9 g/dL (3.4-5.0); ALKALINE PHOSPHATASE 150 Units/L (46-116); ASPARTATE AMINO TRANSFERASE 35 Units/L (15-37); BLOOD UREA NITROGEN 28 mg/dL (7-18); CALCIUM 8.7 mg/dL (8.5-10.1); CHLORIDE 104 mmol/L (98-107); COR CA(FOR HYPOALB) 9.6 mg/dL (8.5-10.1); CREATININE 1.24 mg/dL (0.70-1.30); MAGNESIUM 2.3 mg/dL (1.7-2.9); SODIUM 141 mmol/L (136-145); TOTAL PROTEIN 6.4 g/dL (6.4-8.2); eGFR NON BLACK RACES > 60 (>60)
[2020-12-02] MEDS ORDERED: LEXAPRO ONE (08:32)
[2020-12-02] MEDS: K-DUR TAB 20 MEQ PO SCH (08:55)
[2020-12-02] MEDS: VSL#3 PO SCH (08:56)
[2020-12-02] MEDS: BENICAR TAB 40 MG PO SCH (08:56)
[2020-12-02] MEDS: ELIQUIS PO SCH ×2 (08:58→21:51)
[2020-12-02] MEDS: VITAMIN D3 125 mcg (5,000 UNITS) PO SCH (08:58)
[2020-12-02] MEDS: VIBRAMYCIN PO SCH ×2 (08:59→21:51)
[2020-12-02] MEDS: VITAMIN A PO SCH (08:59)
[2020-12-02] MEDS: REMDESIVIR 100 MG in NS 250 ML IV 250 ML IV SCH (09:00)
[2020-12-02] MEDS: PROTONIX TAB 40 MG PO SCH ×2 (09:00→21:51)
[2020-12-02] MEDS: PLAVIX PO SCH (09:01)
[2020-12-02] MEDS: LEXAPRO PO SCH (09:02)
[2020-12-02] MEDS: NORVASC TAB 5 MG PO SCH (09:02)
[2020-12-02] MEDS: ZINC SULFATE PO SCH ×2 (09:11→21:51)
[2020-12-02] MEDS: DECADRON TAB PO SCH (09:20)
[2020-12-02] MEDS: LIPITOR TAB 40 MG PO SCH (09:20)
[2020-12-02] MEDS: PEPCID TAB 20 MG PO SCH ×2 (09:27→21:52)
[2020-12-02] MEDS: TOPROL XL PO SCH (09:48)
[2020-12-02] MEDS: TYLENOL 325 MG TAB PO PRN ×2 (09:48→14:15)
[2020-12-02] MEDS: ZOFRAN INJ 4 MG VIAL IVP PRN ×2 (09:49→22:40)
--- NOTE | 2020-12-02 11:23 | RAD ---
HISTORYPNEUMONIA, COVIDSTUDYCHEST x-ray, 1 VIEWCOMPARISONX-ray 11/30/2020FINDINGSProminent bilateral pneumonia may have slightly worsened since prior study. Probable cardiomegaly is seen. No pneumothorax or pleural effusion is seen.IMPRESSIONPossible mild worsening of bilateral pneumonia.Electronically signed by: Cali Keller (Dec 02, 2020 11:21:59)
[2020-12-02] MEDS: IVERMECTIN PO SCH (15:43)
--- NOTE | 2020-12-02 19:02 | PCM.PROG ---
Progress Note Progress Note for Day of Date of Exam: 12/02/20 Subjective Subjective: Pt is a 65 year old male past medical history of Hypertension, COPD, CAD, admitted for COVID-19 pneumonia(positive on 11/26). This morning he reports some improvement in his breathing. No acute events overnight. Labs/imaging: Wbc 16, Hgb 10.4, Plt 316, Na 141, K 4.3, Cr 1.24, Glucose 100, CXR: possible mild worsening of bilateral pneumonia. His hospital/treatment course includes: Remdesivir, Decadron, Convalescent plasma (received on 11/28), Antibiotics: Zosyn and Doxycycline, immune supporting supplements, supplemental O2, I/S, Respiratory therapy consult, Pneumonia protocol. Pt is currently requiring heated high flow oxygen with FiO2 at 56%. Will wean as tolerated, otherwise continue current plan. Continue to monitor and follow up labs/imaging in the morning. Past Medical Family Social History Past Med/Fam/Surg Hx: No changes since H&P Allergies: Allergies acetaminophen [From Lorcet (hydrocodone)] Allergy (Verified 11/26/20 16:15) hydrocodone [From Lorcet (hydrocodone)] Allergy (Verified 11/26/20 16:15) Review of Systems ROS: No change since H&P Vital Signs and I&O's Vital Signs: Temperature 97.7 F Pulse Rate [Right Radial] 59 Pulse Rate 61 Respiratory Rate 20 Blood Pressure [Left Arm] 116/73 Blood Pressure 206/95 O2 Sat by Pulse Oximetry 91 Intake and Output: Intake & Output 11/29/20 11/30/20 12/01/20 12/02/20 23:59 23:59 23:59 23:59 Intake Total 3107 / 3107 3734 / 3734 3220 / 3220 270 / 270 Output Total 1325 / 1325 1075 / 1075 1175 / 1175 100 / 100 Balance 1782 / 1782 2659 / 2659 2045 / 2045 170 / 170 Physical Exam Oriented: Normal Eyes: Normal Ear: Normal Nose: Normal Throat: Normal Respiratory: Diminished Cardiovascular: Normal : Normal Auscultation: Bowel Sounds: Normal Tenderness: Normal Skin: Normal Musculoskeletal: Normal Psychiatric: Normal Mood Description: Calm and Appropriate Affect: Normal Speech Pattern: Clear and Appropriate Laboratory and Diagnostics Result Diagrams: 12/02/20 05:20 12/02/20 05:20 Labs: 11/26/20 17:03 Blood Blood Culture - Final 11/26/20 16:55 Blood Blood Culture - Final 11/28/20 11:02 Sputum - Expectorated Sputum Sputum Culture - Final 11/28/20 11:02 Sputum - Expectorated Sputum - Final Laboratory WBC 16.0 X10^3/uL (3.6-10.0) H 12/02/20 05:20 RBC 3.48 X10^6/uL (4.7-6.0) L 12/02/20 05:20 Hgb 10.4 g/dL (13.5-18.0) L 12/02/20 05:20 Hct 31.5 % (42.0-54.0) L 12/02/20 05:20 MCV 90.5 fL (80.0-100.0) 12/02/20 05:20 MCH 29.9 pg (27.0-34.0) 12/02/20 05:20 MCHC 33.0 g/dL (33.0-35.0) 12/02/20 05:20 RDW 15.9 % (11.6-16.5) 12/02/20 05:20 Plt Count 316 X10^3/uL (150.0-450.0) 12/02/20 05:20 MPV 8.0 fL (7.4-11.0) 12/02/20 05:20 Neut % (Auto) 87.5 % (42.0-75.0) H 12/02/20 05:20 Lymph % (Auto) 6.6 % (21.0-51.0) L 12/02/20 05:20 [place] % (Auto) 5.6 % (0.0-13.0) 12/02/20 05:20 Eos % (Auto) 0.0 % (0.9-2.9) L 12/02/20 05:20 Baso % (Auto) 0.3 % (0.2-1.0) 12/02/20 05:20 Neut # (Auto) 14.0 x10^3/uL (2.2-4.8) H 12/02/20 05:20 Lymph # (Auto) 1.1 X10^3/uL (1.3-2.9) L 12/02/20 05:20 [place] # (Auto) 0.9 x10^3/uL (0.3-0.8) H 12/02/20 05:20 Eos # (Auto) 0.0 x10^3/uL (0.0-0.2) 12/02/20 05:20 Baso # (Auto) 0.0 X10^3/uL (0.0-0.1) 12/02/20 05:20 Absolute Nucleated RBC 0.4 /100WBC 12/02/20 05:20 PT 16.2 SECONDS (11.8-14.3) 11/27/20 04:10 INR Target Range - 11/27/20 04:10 INR 1.34 (0.8-1.3) H 11/27/20 04:10 APTT 56.7 SECONDS (22.9-36.5) H 11/27/20 04:10 PTT Comment - 11/27/20 04:10 D-Dimer 0.34 ug/ml (0.0-0.57) 11/26/20 16:55 Sample Site Lrad 11/27/20 06:49 ABG pH 7.550 (7.35-7.45) H 11/27/20 06:49 ABG pCO2 36.0 mmHg (35.0-45.0) 11/27/20 06:49 ABG pO2 55.0 mmHg (80.0-100.0) L 11/27/20 06:49 ABG HCO3 31.5 mmol/L (22-26) H* 11/27/20 06:49 ABG O2 Saturation 92.0 % (90-100) 11/27/20 06:49 ABG Base Excess 8.7 mmol/L (-2.0-2.0) H 11/27/20 06:49 Laron Test Pos 11/27/20 06:49 A-a Gradient 128.0 mmHg 11/27/20 06:49 FiO2 32.0 11/27/20 06:49 Blood Gas Comments Ev abg well-mtf 11/27/20 06:49 Sodium 141 mmol/L (136-145) 12/02/20 05:20 Corrected Sodium TNP 12/02/20 05:20 Potassium 4.3 mmol/L (3.5-5.1) 12/02/20 05:20 Chloride 104 mmol/L (98-107) 12/02/20 05:20 Carbon Dioxide 28.0 mmol/L (21-32) 12/02/20 05:20 BUN 28 mg/dL (7-18) H 12/02/20 05:20 Creatinine 1.24 mg/dL (0.70-1.30) 12/02/20 05:20 Est GFR (MDRD) Af Amer > 60 (>60) 12/02/20 05:20 Est GFR (MDRD) Non-Af > 60 (>60) 12/02/20 05:20 Glucose 100 mg/dL (65-99) H 12/02/20 05:20 Lactic Acid 1.7 mmol/L (0.4-2.0) 11/26/20 16:55 Calcium 8.7 mg/dL (8.5-10.1) 12/02/20 05:20 Corrected Calcium 9.6 mg/dL (8.5-10.1) 12/02/20 05:20 Magnesium 2.3 mg/dL (1.7-2.9) 12/02/20 05:20 Total Bilirubin 0.70 mg/dL (0.2-1.0) 12/02/20 05:20 AST 35 Units/L (15-37) 12/02/20 05:20 ALT 26 Units/L (12-78) 12/02/20 05:20 Alkaline Phosphatase 150 Units/L (46-116) H 12/02/20 05:20 Creatine Kinase 73 Units/L (39-308) 11/26/20 16:55 CK-MB (CK-2) 1.3 ng/mL (0-4.0) 11/26/20 16:55 CK/CKMB % Calc 1.8 % (<4) 11/26/20 16:55 Troponin I 0.16 ng/mL (0-1.5) 11/27/20 15:47 C-Reactive Protein 179.60 mg/L (0-3.0) H 11/27/20 04:10 Total Protein 6.4 g/dL (6.4-8.2) 12/02/20 05:20 Albumin 2.9 g/dL (3.4-5.0) L 12/02/20 05:20 Globulin 3.5 g/dL (2.5-4.5) 12/02/20 05:20 Albumin/Globulin Ratio 0.8 Ratio (1.1-2.1) L 12/02/20 05:20 SARS CoV-2 RNA Rapid COLIN Positive (NEGATIVE) A 11/26/20 17:38 Blood Type A POSITIVE 11/27/20 01:45 Plan (1) Pneumonia due to COVID-19 virus: Status: Acute (2) Acute respiratory failure with hypoxia: Status: Acute (3) COPD (chronic obstructive pulmonary disease): Status: Chronic Qualifiers: COPD type: unspecified COPD Qualified Code(s): J44.9 - Chronic obstructive pulmonary disease, unspecified
[2020-12-03] MEDS: XOPENEX 1.25 MG/3 ML NEBULE NEB SCH ×2 (00:30→05:29)
[2020-12-03] MEDS: ASCORBIC ACID INJ MULTI-DOSE VIAL 1,500 MG in NS 50 ML IV 50 ML IV SCH ×2 (03:17→09:00)
[2020-12-03] MEDS: ZOSYN VIAL 4.5 GRAMS 4.5 G in NS 50 ML IV + SPIKE MINIBAG* 50 ML IV SCH (05:42)
[2020-12-03 06:01] LABS: BASOPHILS % (AUTO) 0.2 % (0.2-1.0); HEMATOCRIT 31.5 % (42.0-54.0); HEMOGLOBIN 10.2 g/dL (13.5-18.0); LYMPHOCYTES % (AUTO) 6.9 % (21.0-51.0); MEAN CORPUSCULAR HEMOGLOBIN 29.3 pg (27.0-34.0); MEAN CORPUSCULAR HGB CONC 32.3 g/dL (33.0-35.0); MEAN CORPUSCULAR VOLUME 90.6 fL (80.0-100.0); MEAN PLATELET VOLUME 8.2 fL (7.4-11.0); MONOCYTES # (AUTO) 0.8 x10^3/uL (0.3-0.8); MONOCYTES % (AUTO) 5.6 % (0.0-13.0); NEUTROPHILS # (AUTO) 11.9 x10^3/uL (2.2-4.8); NEUTROPHILS % (AUTO) 87.3 % (42.0-75.0); PLATELET COUNT 274 X10^3/uL (150.0-450.0); RED BLOOD COUNT 3.48 X10^6/uL (4.7-6.0); RED CELL DISTRIBUTION WIDTH 15.8 % (11.6-16.5); WHITE BLOOD COUNT 13.7 X10^3/uL (3.6-10.0)
[2020-12-03 06:05] LABS: ALANINE AMINOTRANSFERASE 36 Units/L (12-78); ALBUMIN 2.6 g/dL (3.4-5.0); ALKALINE PHOSPHATASE 157 Units/L (46-116); ASPARTATE AMINO TRANSFERASE 58 Units/L (15-37); BLOOD UREA NITROGEN 38 mg/dL (7-18); CALCIUM 8.5 mg/dL (8.5-10.1); CARBON DIOXIDE 26.1 mmol/L (21-32); CHLORIDE 106 mmol/L (98-107); COR CA(FOR HYPOALB) 9.6 mg/dL (8.5-10.1); CREATININE 1.25 mg/dL (0.70-1.30); SODIUM 142 mmol/L (136-145); TOTAL PROTEIN 5.8 g/dL (6.4-8.2); eGFR NON BLACK RACES > 60 (>60)
[2020-12-03] MEDS: ZOFRAN INJ 4 MG VIAL IVP PRN (07:43)
[2020-12-03] MEDS ORDERED: PHENERGAN INJ 25 MG IM PRN (08:59)
[2020-12-03] MEDS: ROBITUSSIN DM PO SCH ×2 (09:00→14:06)
[2020-12-03] MEDS ORDERED: LEXAPRO PO SCH (09:00)
[2020-12-03] MEDS ORDERED: PHENERGAN INJ 25 MG IM ONE (09:03)
[2020-12-03 10:46] LABS: ABG BASE EXCESS -6.1 mmol/L (-2.0-2.0)
[2020-12-03 10:47] LABS: ABG HCO3 16.9 mmol/L (22-26)
[2020-12-03] MEDS ORDERED: DOPAMINE IV PREMIX 400 MG/250 ML 400 MG/250 ML BAG IV ONE (11:04)
[2020-12-03 11:50] LABS: TROPONIN I 7.38 ng/mL (0-1.5)
[2020-12-03] MEDS ORDERED: ASPIRIN ONE (11:51)
[2020-12-03] MEDS ORDERED: HEPARIN SODIUM INJ 5000 UNITS ONE ×2 (11:51→11:55)
[2020-12-03] MEDS ORDERED: HEPARIN SODIUM IN D5W 25,000 UNITS/500 ML BAG IV PRN ×2 (11:53→11:54)
[2020-12-03] MEDS ORDERED: NS 500 ML IV 500 ML IV ONE ×2 (11:55→11:56)
[2020-12-03] MEDS ORDERED: HEPARIN SODIUM INJ 5000 UNITS IVP NR (12:00)
[2020-12-03] MEDS ORDERED: ASPIRIN PO NR (12:00)
--- NOTE | 2020-12-03 12:58 | PCM.PROG ---
Progress Note Progress Note for Day of Date of Exam: 12/03/20 Subjective Subjective: Pt is a 65 year old male past medical history of Hypertension, COPD, CAD, admitted for COVID-19 pneumonia(positive on 11/26). This morning patient became nauseated and fatigued. Pt was given zofran and phenergan that did not help symptoms. Nursing notified that pt became acutely disoriented and had blood pressure drop down to 70s/50s. Ekg and cardiac enzymes ordered stat. On Ekg STEMI seen on anterior lateral leads. Troponin elevated at 7.38. Pt was given ASA 325mg and started on a heparin gtt. Pt placed on non-rebreather and given 500cc bolus of normal saline to bring up blood pressure. Will contact higher level care facilities for transfer for cardiology evaluation/intervention. Co valeria to closely monitor patient. Critical care time spent 30-74 minutes in clinical assessment, reviewing labs/imaging, decision making and documentation. Past Medical Family Social History Past Med/Fam/Surg Hx: No changes since H&P Allergies: Allergies acetaminophen [From Lorcet (hydrocodone)] Allergy (Verified 11/26/20 16:15) hydrocodone [From Lorcet (hydrocodone)] Allergy (Verified 11/26/20 16:15) Review of Systems ROS: No change since H&P Vital Signs and I&O's Vital Signs: Temperature 97.7 F Pulse Rate [Right Radial] 56 Pulse Rate 58 Respiratory Rate 24 Blood Pressure [Right Arm] 146/83 Blood Pressure [Left Arm] 130/71 Blood Pressure 206/95 O2 Sat by Pulse Oximetry 94 Intake and Output: Intake & Output 11/30/20 12/01/20 12/02/20 12/03/20 23:59 23:59 23:59 23:59 Intake Total 3734 / 3734 3220 / 3220 1499 / 1499 418 / 418 Output Total 1075 / 1075 1175 / 1175 250 / 250 125 / 125 Balance 2659 / 2659 2045 / 2045 1249 / 1249 293 / 293 Physical Exam Oriented: Normal Eyes: Normal Ear: Normal Nose: Normal Throat: Normal Respiratory: Diminished Cardiovascular: Normal : Normal Auscultation: Bowel Sounds: Normal Tenderness: Normal Skin: Normal Musculoskeletal: Normal Psychiatric: Normal Mood Description: Calm and Appropriate Affect: Normal Speech Pattern: Clear and Appropriate Laboratory and Diagnostics Result Diagrams: 12/03/20 04:05 12/03/20 04:05 Labs: 11/26/20 17:03 Blood Blood Culture - Final 11/26/20 16:55 Blood Blood Culture - Final 11/28/20 11:02 Sputum - Expectorated Sputum Sputum Culture - Final 11/28/20 11:02 Sputum - Expectorated Sputum - Final Laboratory WBC 13.7 X10^3/uL (3.6-10.0) H 12/03/20 04:05 RBC 3.48 X10^6/uL (4.7-6.0) L 12/03/20 04:05 Hgb 10.2 g/dL (13.5-18.0) L 12/03/20 04:05 Hct 31.5 % (42.0-54.0) L 12/03/20 04:05 MCV 90.6 fL (80.0-100.0) 12/03/20 04:05 MCH 29.3 pg (27.0-34.0) 12/03/20 04:05 MCHC 32.3 g/dL (33.0-35.0) L 12/03/20 04:05 RDW 15.8 % (11.6-16.5) 12/03/20 04:05 Plt Count 274 X10^3/uL (150.0-450.0) 12/03/20 04:05 MPV 8.2 fL (7.4-11.0) 12/03/20 04:05 Neut % (Auto) 87.3 % (42.0-75.0) H 12/03/20 04:05 Lymph % (Auto) 6.9 % (21.0-51.0) L 12/03/20 04:05 Hamlin % (Auto) 5.6 % (0.0-13.0) 12/03/20 04:05 Eos % (Auto) 0.0 % (0.9-2.9) L 12/03/20 04:05 Baso % (Auto) 0.2 % (0.2-1.0) 12/03/20 04:05 Neut # (Auto) 11.9 x10^3/uL (2.2-4.8) H 12/03/20 04:05 Lymph # (Auto) 1.0 X10^3/uL (1.3-2.9) L 12/03/20 04:05 Hamlin # (Auto) 0.8 x10^3/uL (0.3-0.8) 12/03/20 04:05 Eos # (Auto) 0.0 x10^3/uL (0.0-0.2) 12/03/20 04:05 Baso # (Auto) 0.0 X10^3/uL (0.0-0.1) 12/03/20 04:05 Absolute Nucleated RBC 0.6 /100WBC 12/03/20 04:05 PT 16.2 SECONDS (11.8-14.3) 11/27/20 04:10 INR Target Range - 11/27/20 04:10 INR 1.34 (0.8-1.3) H 11/27/20 04:10 APTT 35.8 SECONDS (22.9-36.5) 12/03/20 12:23 PTT Comment - 12/03/20 12:23 D-Dimer 0.34 ug/ml (0.0-0.57) 11/26/20 16:55 Sample Site Rb 12/03/20 10:17 ABG pH 7.420 (7.35-7.45) 12/03/20 10:17 ABG pCO2 26.0 mmHg (35.0-45.0) L 12/03/20 10:17 ABG pO2 114.0 mmHg (80.0-100.0) H 12/03/20 10:17 ABG HCO3 16.9 mmol/L (22-26) L* 12/03/20 10:17 ABG O2 Saturation 99.0 % (90-100) 12/03/20 10:17 ABG Base Excess -6.1 mmol/L (-2.0-2.0) L 12/03/20 10:17 Laron Test Na 12/03/20 10:17 A-a Gradient 531.0 mmHg 12/03/20 10:17 FiO2 95.0 12/03/20 10:17 Blood Gas Comments Ev well gmb 12/03/20 10:17 Sodium 142 mmol/L (136-145) 12/03/20 04:05 Corrected Sodium TNP 12/03/20 04:05 Potassium 4.5 mmol/L (3.5-5.1) 12/03/20 04:05 Chloride 106 mmol/L (98-107) 12/03/20 04:05 Carbon Dioxide 26.1 mmol/L (21-32) 12/03/20 04:05 BUN 38 mg/dL (7-18) H 12/03/20 04:05 Creatinine 1.25 mg/dL (0.70-1.30) 12/03/20 04:05 Est GFR (MDRD) Af Amer > 60 (>60) 12/03/20 04:05 Est GFR (MDRD) Non-Af > 60 (>60) 12/03/20 04:05 Glucose 97 mg/dL (65-99) 12/03/20 04:05 Lactic Acid 1.7 mmol/L (0.4-2.0) 11/26/20 16:55 Calcium 8.5 mg/dL (8.5-10.1) 12/03/20 04:05 Corrected Calcium 9.6 mg/dL (8.5-10.1) 12/03/20 04:05 Magnesium 2.3 mg/dL (1.7-2.9) 12/02/20 05:20 Total Bilirubin 0.80 mg/dL (0.2-1.0) 12/03/20 04:05 AST 58 Units/L (15-37) H 12/03/20 04:05 ALT 36 Units/L (12-78) 12/03/20 04:05 Alkaline Phosphatase 157 Units/L (46-116) H 12/03/20 04:05 Creatine Kinase 388 Units/L (39-308) H 12/03/20 10:55 CK-MB (CK-2) 62.0 ng/mL (0-4.0) H* 12/03/20 10:55 CK/CKMB % Calc 16.0 % (<4) 12/03/20 10:55 Troponin I 7.38 ng/mL (0-1.5) H* 12/03/20 10:55 C-Reactive Protein 179.60 mg/L (0-3.0) H 11/27/20 04:10 Total Protein 5.8 g/dL (6.4-8.2) L 12/03/20 04:05 Albumin 2.6 g/dL (3.4-5.0) L 12/03/20 04:05 Globulin 3.2 g/dL (2.5-4.5) 12/03/20 04:05 Albumin/Globulin Ratio 0.8 Ratio (1.1-2.1) L 12/03/20 04:05 SARS CoV-2 RNA Rapid COLIN Positive (NEGATIVE) A 11/26/20 17:38 Blood Type A POSITIVE 11/27/20 01:45 Plan (1) Pneumonia due to COVID-19 virus: Status: Acute (2) Acute respiratory failure with hypoxia: Status: Acute (3) COPD (chronic obstructive pulmonary disease): Status: Chronic Qualifiers: COPD type: unspecified COPD Qualified Code(s): J44.9 - Chronic obstructive pulmonary disease, unspecified (4) STEMI (ST elevation myocardial infarction): Status: Acute
--- NOTE | 2020-12-03 12:58 | W.DIS.FURT ---
Summary of Discharge Discharge Summary of Date Date of Exam: 12/03/20 Admission Date Date of Admission: 11/26/20 Admission Diagnosis Hospital Course: Pt is a 65 year old male past medical history of Hypertension, COPD, CAD, admitted for COVID-19 pneumonia(positive on 11/26). Hospital/treatment course included: Remdesivir, Decadron, Convalescent plasma (received on 11/28), Antibiotics: Zosyn and Doxycycline, immune supporting supplements, supplemental O2, I/S, Respiratory therapy consult, Pneumonia protocol. During hospital course pt became nauseated and fatigued. Pt was given zofran and phenergan that did not help symptoms. Nursing notified that pt became acutely disoriented and had blood pressure drop down to 70s/50s. Ekg and cardiac enzymes ordered stat. On Ekg STEMI seen on anterior lateral leads. Troponin elevated at 7.38. Pt was given ASA 325mg and started on a heparin gtt. Pt placed on non-rebreather and given 500cc bolus of normal saline to bring up blood pressure. BP 90/60, P 73, RR 20, T 97F, PulseOx 99% on non-rebreather. Labs/imaging: Wbc 13.7, Hgb 10.2, Plt 274, Na 142, K 4.5, Cr 1.25, Glucose 97, CXR: possible mild worsening of bilateral pneumonia. Discussed with cardiology Dr Jorge Luis Gamboa from [facility], agrees with and accepts transfer. Pt transferred to [facility] in [place], [place] for higher level of care. Time spent on clinical assessment, reviewing labs/imaging, decision making, and documentation greater than 30 minutes. Vital Signs: Vital Signs (72 hours) 11/30/20 16:00 11/30/20 20:00 11/30/20 21:20 Temperature 97.8 F 97.7 F Pulse Rate Pulse Rate [Right Radial] 63 81 Respiratory Rate 22 22 19 Blood Pressure [Left Arm] 107/51 141/77 Blood Pressure [Right Arm] O2 Sat by Pulse Oximetry 94 L 94 L 11/30/20 21:55 11/30/20 22:55 12/01/20 00:00 Temperature 97.6 F Pulse Rate 59 L Pulse Rate [Right Radial] 59 L Respiratory Rate 22 22 14 Blood Pressure [Left Arm] 140/67 Blood Pressure [Right Arm] O2 Sat by Pulse Oximetry 93 L 12/01/20 04:00 12/01/20 08:00 12/01/20 08:51 Temperature 97.9 F 97.6 F Pulse Rate Pulse Rate [Right Radial] 65 59 L Respiratory Rate 18 24 20 Blood Pressure [Left Arm] 131/69 146/74 Blood Pressure [Right Arm] O2 Sat by Pulse Oximetry 93 L 93 L 12/01/20 12:00 12/01/20 12:01 12/01/20 13:01 Temperature 97.4 F L Pulse Rate Pulse Rate [Right Radial] 59 L Respiratory Rate 22 24 20 Blood Pressure [Left Arm] 149/76 Blood Pressure [Right Arm] O2 Sat by Pulse Oximetry 94 L 12/01/20 16:00 12/01/20 20:00 12/01/20 20:32 Temperature 97.9 F 98.1 F Pulse Rate Pulse Rate [Right Radial] 59 L 60 Respiratory Rate 24 24 22 Blood Pressure [Left Arm] 130/68 144/69 Blood Pressure [Right Arm] O2 Sat by Pulse Oximetry 95 92 L 12/01/20 21:26 12/01/20 21:32 12/02/20 00:00 Temperature 98.1 F Pulse Rate Pulse Rate [Right Radial] 61 Respiratory Rate 22 22 18 Blood Pressure [Left Arm] 132/70 Blood Pressure [Right Arm] O2 Sat by Pulse Oximetry 91 L 12/02/20 00:01 12/02/20 04:00 12/02/20 08:00 Temperature 97.6 F 97.8 F Pulse Rate 61 Pulse Rate [Right Radial] 52 L 60 Respiratory Rate 22 20 Blood Pressure [Left Arm] 129/73 159/80 Blood Pressure [Right Arm] O2 Sat by Pulse Oximetry 93 L 91 L 91 L 12/02/20 09:48 12/02/20 10:48 12/02/20 12:00 Temperature 97.7 F Pulse Rate Pulse Rate [Right Radial] 59 L Respiratory Rate 20 20 20 Blood Pressure [Left Arm] 116/73 Blood Pressure [Right Arm] O2 Sat by Pulse Oximetry 91 L 12/02/20 14:15 12/02/20 16:00 12/02/20 20:00 Temperature 97.5 F L 98.2 F Pulse Rate Pulse Rate [Right Radial] 53 L 58 L Respiratory Rate 20 20 20 Blood Pressure [Left Arm] 130/71 Blood Pressure [Right Arm] 134/81 O2 Sat by Pulse Oximetry 95 94 L 12/02/20 21:00 12/03/20 00:00 12/03/20 00:30 Temperature 97.6 F Pulse Rate 59 L Pulse Rate [Right Radial] 59 L Respiratory Rate 20 24 24 Blood Pressure [Left Arm] Blood Pressure [Right Arm] 118/67 O2 Sat by Pulse Oximetry 93 L 94 L 12/03/20 04:00 12/03/20 05:29 Temperature 97.7 F Pulse Rate 58 L Pulse Rate [Right Radial] 56 L Respiratory Rate 24 Blood Pressure [Left Arm] Blood Pressure [Right Arm] 146/83 O2 Sat by Pulse Oximetry 94 L 94 L Labs: Laboratory Last Values WBC 13.7 X10^3/uL (3.6-10.0) H 12/03/20 04:05 RBC 3.48 X10^6/uL (4.7-6.0) L 12/03/20 04:05 Hgb 10.2 g/dL (13.5-18.0) L 12/03/20 04:05 Hct 31.5 % (42.0-54.0) L 12/03/20 04:05 MCV 90.6 fL (80.0-100.0) 12/03/20 04:05 MCH 29.3 pg (27.0-34.0) 12/03/20 04:05 MCHC 32.3 g/dL (33.0-35.0) L 12/03/20 04:05 RDW 15.8 % (11.6-16.5) 12/03/20 04:05 Plt Count 274 X10^3/uL (150.0-450.0) 12/03/20 04:05 MPV 8.2 fL (7.4-11.0) 12/03/20 04:05 Neut % (Auto) 87.3 % (42.0-75.0) H 12/03/20 04:05 Lymph % (Auto) 6.9 % (21.0-51.0) L 12/03/20 04:05 Wirt % (Auto) 5.6 % (0.0-13.0) 12/03/20 04:05 Eos % (Auto) 0.0 % (0.9-2.9) L 12/03/20 04:05 Baso % (Auto) 0.2 % (0.2-1.0) 12/03/20 04:05 Neut # (Auto) 11.9 x10^3/uL (2.2-4.8) H 12/03/20 04:05 Lymph # (Auto) 1.0 X10^3/uL (1.3-2.9) L 12/03/20 04:05 Wirt # (Auto) 0.8 x10^3/uL (0.3-0.8) 12/03/20 04:05 Eos # (Auto) 0.0 x10^3/uL (0.0-0.2) 12/03/20 04:05 Baso # (Auto) 0.0 X10^3/uL (0.0-0.1) 12/03/20 04:05 Absolute Nucleated RBC 0.6 /100WBC 12/03/20 04:05 PT 16.2 SECONDS (11.8-14.3) 11/27/20 04:10 INR Target Range - 11/27/20 04:10 INR 1.34 (0.8-1.3) H 11/27/20 04:10 APTT 35.8 SECONDS (22.9-36.5) 12/03/20 12:23 PTT Comment - 12/03/20 12:23 D-Dimer 0.34 ug/ml (0.0-0.57) 11/26/20 16:55 Sample Site Rb 12/03/20 10:17 ABG pH 7.420 (7.35-7.45) 12/03/20 10:17 ABG pCO2 26.0 mmHg (35.0-45.0) L 12/03/20 10:17 ABG pO2 114.0 mmHg (80.0-100.0) H 12/03/20 10:17 ABG HCO3 16.9 mmol/L (22-26) L* 12/03/20 10:17 ABG O2 Saturation 99.0 % (90-100) 12/03/20 10:17 ABG Base Excess -6.1 mmol/L (-2.0-2.0) L 12/03/20 10:17 Laron Test Na 12/03/20 10:17 A-a Gradient 531.0 mmHg 12/03/20 10:17 FiO2 95.0 12/03/20 10:17 Blood Gas Comments Ev well gmb 12/03/20 10:17 Sodium 142 mmol/L (136-145) 12/03/20 04:05 Corrected Sodium TNP 12/03/20 04:05 Potassium 4.5 mmol/L (3.5-5.1) 12/03/20 04:05 Chloride 106 mmol/L (98-107) 12/03/20 04:05 Carbon Dioxide 26.1 mmol/L (21-32) 12/03/20 04:05 BUN 38 mg/dL (7-18) H 12/03/20 04:05 Creatinine 1.25 mg/dL (0.70-1.30) 12/03/20 04:05 Est GFR (MDRD) Af Amer > 60 (>60) 12/03/20 04:05 Est GFR (MDRD) Non-Af > 60 (>60) 12/03/20 04:05 Glucose 97 mg/dL (65-99) 12/03/20 04:05 Lactic Acid 1.7 mmol/L (0.4-2.0) 11/26/20 16:55 Calcium 8.5 mg/dL (8.5-10.1) 12/03/20 04:05 Corrected Calcium 9.6 mg/dL (8.5-10.1) 12/03/20 04:05 Magnesium 2.3 mg/dL (1.7-2.9) 12/02/20 05:20 Total Bilirubin 0.80 mg/dL (0.2-1.0) 12/03/20 04:05 AST 58 Units/L (15-37) H 12/03/20 04:05 ALT 36 Units/L (12-78) 12/03/20 04:05 Alkaline Phosphatase 157 Units/L (46-116) H 12/03/20 04:05 Creatine Kinase 388 Units/L (39-308) H 12/03/20 10:55 CK-MB (CK-2) 62.0 ng/mL (0-4.0) H* 12/03/20 10:55 CK/CKMB % Calc 16.0 % (<4) 12/03/20 10:55 Troponin I 7.38 ng/mL (0-1.5) H* 12/03/20 10:55 C-Reactive Protein 179.60 mg/L (0-3.0) H 11/27/20 04:10 Total Protein 5.8 g/dL (6.4-8.2) L 12/03/20 04:05 Albumin 2.6 g/dL (3.4-5.0) L 12/03/20 04:05 Globulin 3.2 g/dL (2.5-4.5) 12/03/20 04:05 Albumin/Globulin Ratio 0.8 Ratio (1.1-2.1) L 12/03/20 04:05 SARS CoV-2 RNA Rapid COLIN Positive (NEGATIVE) A 11/26/20 17:38 Blood Type A POSITIVE 11/27/20 01:45 Reason For Visit: PNEUMONIA,HYPOXIA,COVID 19 VIRUS INFECTION Discharge Date Discharge Date: 12/03/20 Discharge Diagnosis All Active Problems (Updated 12/03/20 @ 14:46 by Jose Lund) STEMI (ST elevation myocardial infarction) (Acute) COPD (chronic obstructive pulmonary disease) (Chronic) Acute respiratory failure with hypoxia (Acute) Pneumonia due to COVID-19 virus (Acute) Arrhythmia (Acute) Plan of Treatment: Continue with present treatment and follow up plan. Pt is to keep follow up appointment as instructed and take medications as ordered. Discharge Medications Discharge Medications: acetaminophen [From Lorcet (hydrocodone)] Allergy (Verified 11/26/20 16:15) hydrocodone [From Lorcet (hydrocodone)] Allergy (Verified 11/26/20 16:15) CONTINUE taking the following medications apixaban [Eliquis] 5 mg PO BID 11/26/20 [History] ascorbic acid (vitamin C) [Vitamin C] 500 mg PO DAILY 11/26/20 [History] aspirin 81 mg PO ONCE 11/26/20 [History] atorvastatin 80 mg PO DAILY 11/26/20 [History] cefdinir 300 mg PO BID 11/26/20 [History] furosemide 40 mg PO DAILY 11/26/20 [History] olmesartan 20 mg PO DAILY 11/26/20 [History] pantoprazole 40 mg PO BID 11/26/20 [History] prednisone 10 mg PO DAILY 11/26/20 [History] Discharge Disposition Discharge Disposition: [place], [place] Discharge Condition: Guarded Discharge Plan Discharge Plan Hospital Course: Pt is a 65 year old male past medical history of Hypertension, COPD, CAD, admitted for COVID-19 pneumonia(positive on 11/26). Hospital/treatment course included: Remdesivir, Decadron, Convalescent plasma (received on 11/28), Antibiotics: Zosyn and Doxycycline, immune supporting supplements, supplemental O2, I/S, Respiratory therapy consult, Pneumonia protocol. During hospital course pt became nauseated and fatigued. Pt was given zofran and phenergan that did not help symptoms. Nursing notified that pt became acutely disoriented and had blood pressure drop down to 70s/50s. Ekg and cardiac enzymes ordered stat. On Ekg STEMI seen on anterior lateral leads. Troponin elevated at 7.38. Pt was given ASA 325mg and started on a heparin gtt. Pt placed on non-rebreather and given 500cc bolus of normal saline to bring up blood pressure. BP 90/60, P 73, RR 20, T 97F, PulseOx 99% on non-rebreather. Labs/imaging: Wbc 13.7, Hgb 10.2, Plt 274, Na 142, K 4.5, Cr 1.25, Glucose 97, CXR: possible mild worsening of bilateral pneumonia. Discussed with cardiology Dr Jorge Luis Gamboa from [facility], agrees with and accepts transfer. Pt transferred to [facility] in [place], [place] for higher level of care. Time spent on clinical assessment, reviewing labs/imaging, decision making, and documentation greater than 30 minutes. Patient Disposition: [facility] Condition: Stable Health Concerns: Post Hospitalization: new medications and changes needed to prevent readmission or further decline. Pt educated and given instructions on all concerns. Care Plan Goals: Problem: Respiratory Complications Goal: Improved Uncomplicated Respiratory Status Instructions: Follow provided instructions. Follow up with primary physician as directed. Contact primary care physician or report to the closest Emergency Room if condition worsens. Plan of Treatment: Continue with present treatment and follow up plan. Pt is to keep follow up appointment as instructed and take medications as ordered. Prescriptions: No Action clopidogrel 75 mg tablet 75 mg PO DAILY RF: 0 furosemide 40 mg tablet 40 mg PO DAILY RF: 0 atorvastatin 80 mg tablet 80 mg PO DAILY RF: 0 prednisone 10 mg tablet 10 mg PO DAILY RF: 0 ascorbic acid (vitamin C) [Vitamin C] 500 mg Tablet 500 mg PO DAILY RF: 0 pantoprazole 40 mg tablet,delayed release (DR/EC) 40 mg PO BID RF: 0 aspirin 81 mg Tablet 81 mg PO ONCE RF: 0 cefdinir 300 mg capsule 300 mg PO BID RF: 0 olmesartan 20 mg tablet 20 mg PO DAILY RF: 0 Eliquis 5 mg tablet 5 mg PO BID RF: 0 Follow ups/Referrals Follow ups/Referrals: JAELYN LAUREANO [Primary Care Provider] - 1 WEEK Instructions Instructions: Incentive Spirometer, Home Oxygen Use, Adult, Hand Washing, [id number], Droplet Precautions, [id number], Contact Precautions, [id number], Hypertension, [id number], Acute Respiratory Failure, Adult Stand Alone Forms: Precautions for COVID19, Social Distancing
[2020-12-03] MEDS ORDERED: ZOSYN VIAL 3.375 GRAMS 3.375 G in NS 50 ML IV + SPIKE MINIBAG* 50 ML IV SCH (14:00)
[2020-12-03] MEDS: BENICAR TAB 40 MG PO SCH (14:07)
[2020-12-03] MEDS: DECADRON TAB PO SCH (14:07)
[2020-12-03] MEDS: NORVASC TAB 5 MG PO SCH (14:08)
[2020-12-03] MEDS: LIPITOR TAB 40 MG PO SCH (14:08)
[2020-12-03] MEDS: K-DUR TAB 20 MEQ PO SCH (14:08)
[2020-12-03] MEDS: PROTONIX TAB 40 MG PO SCH (14:09)
[2020-12-03] MEDS: PEPCID TAB 20 MG PO SCH (14:09)
[2020-12-03] MEDS: PLAVIX PO SCH (14:09)
[2020-12-03] MEDS: VITAMIN A PO SCH (14:10)
[2020-12-03] MEDS: TOPROL XL PO SCH (14:10)
[2020-12-03] MEDS: VIBRAMYCIN PO SCH (14:10)
[2020-12-03] MEDS: VITAMIN D3 125 mcg (5,000 UNITS) PO SCH (14:11)
[2020-12-03] MEDS: ZINC SULFATE PO SCH (14:11)
[2020-12-03] MEDS: VSL#3 PO SCH (14:11)
[2020-12-03] MEDS: NS 1000 ML 1,000 ML IV SCH (14:12)
[2020-12-03 14:23] VITALS: BP 101/60
== END 2020-12-03 13:35 | disposition short-term general hospital (02) | DRG 177 ==
LOC: ER 16:10 → OBS 21:45 → MED/SURG 11-27 13:55
PROVIDERS: ADMIT Family Medicine; ATTEND Family Medicine